=== PATIENT | male | born 1965 | race Caucasian/White ===

== ENCOUNTER 2020-03-09 08:20 | Emergency (ER) | payer SELFPAY ==
[~2020-03-09] VITALS: Ht 175.3 cm; Wt 72.6 kg
--- NOTE | 2020-03-09 08:20 | NUR ---
BIBA TAKEN TO BED 6
[2020-03-09 08:28] VITALS: BP 131/78
--- NOTE | 2020-03-09 08:33 | NUR ---
BIBA AFTER BEING FOUND DIGGING THROUGH TRASH CAN BY [place] [employer]. PT IS POOR HISTORIAN. ANSWERING WITH 1-2 WORDS AND MUMBLED SPEECH. PT DENIES PAIN OR MEDICAL COMPLAINT. FSBS 113. UNABLE TO OBTAIN MEDICAL/ALLERGY HX. BED IN LOW POSITION, SIDE RAIL UP X1.
--- NOTE | 2020-03-09 09:00 | NUR ---
LAB AT BEDSIDE
[2020-03-09 09:12] LABS: BASOPHILS # (AUTO) 0.1 K/uL (0.00-0.22); EOSINOPHILS % (AUTO) 0.8 % (0.0-4.0); HEMOGLOBIN 14.1 g/dL (12.0-18.0); LYMPHOCYTES # (AUTO) 0.9 K/uL (2.0-11.5); LYMPHOCYTES % (AUTO) 13.7 % (20.5-51.1); MEAN CORPUSCULAR HEMOGLOBIN 31 pg (27-31); MEAN CORPUSCULAR HGB CONC 34 g/dL (33-37); MEAN CORPUSCULAR VOLUME 91.7 fL (80-94); MONOCYTES # (AUTO) 0.7 K/uL (0.8-1.0); MONOCYTES % (AUTO) 10.2 % (1.7-9.3); NEUTROPHILS # (AUTO) 4.8 K/uL (1.8-7.7); NEUTROPHILS % (AUTO) 74.3 % (42.2-75.2); PLATELET COUNT (AUTO) 197 K/uL (140-450); RED BLOOD CELL COUNT(AUTO) 4.58 MIL/uL (4.20-6.10); RED CELL DISTRIBUTION WIDTH 13.1 % (11.6-13.7); WHITE BLOOD COUNT (AUTO) 6.4 K/uL (4.8-10.8)
[2020-03-09 09:30] LABS: ALBUMIN 4.2 g/dL (3.4-5.0); ANION GAP 14.3 (8-16); ASPARTATE AMINOTRANSFERASE 82 U/L (15-37); CARBON DIOXIDE 27.1 mmol/L (21-32); CHLORIDE 108 mmol/L (98-107); GFR ARICAN-AMERICAN 101 mL/min (>90); GLUCOSE 93 mg/dL (74-106); POTASSIUM 3.4 mmol/L (3.5-5.1); SODIUM SERUM 146 mmol/L (136-145); TOTAL BILIRUBIN 1.2 mg/dL (0.0-1.0); UREA NITROGEN, BLOOD 23 mg/dL (7-18)
[2020-03-09 09:32] LABS: ACETAMINOPHEN < 0.5 ug/ml (10-30); SALICYLATE < 2.8 mg/dL (2.8-20.0)
--- NOTE | 2020-03-09 10:03 | NUR ---
PT STILL UNABLE TO URINATE, DR. PINON AWARE
[2020-03-09 10:05] VITALS: BP 131/78
--- NOTE | 2020-03-09 10:05 | NUR ---
Patient discharged with v/s stable. Written and verbal after care instructions given and explained. Patient verbalized understanding. Ambulatory with steady gait. All questions addressed prior to discharge. Advised to follow up with PMD. PROVIDED PT WITH PANTS, LUNCH AND HOMELESS RESOURCE PACKET
== END 2020-03-09 10:05 | disposition home or self-care (01) ==
LOC: MED 08:20
DX: R41.82 Altered mental status, unspecified (principal); Z02.89 Encounter for other administrative examinations
CPT/HCPCS: 36415; 80053; 85025; 99283; G0480; G0482

== ENCOUNTER 2020-03-09 15:04 | Emergency (ER) | payer SELFPAY ==
[~2020-03-09] VITALS: Ht 175.3 cm; Wt 72.6 kg
[2020-03-09 15:05] VITALS: BP 137/80
[2020-03-09 16:07] VITALS: BP 137/80
== END 2020-03-09 16:08 | disposition home or self-care (01) ==
LOC: MED 15:04
DX: R41.82 Altered mental status, unspecified (principal); Z02.89 Encounter for other administrative examinations
CPT/HCPCS: 99281; 99283

== ENCOUNTER 2020-03-10 09:38 | Emergency (ER) | payer SELFPAY ==
[~2020-03-10] VITALS: Ht 180.3 cm; Wt 81.6 kg
[2020-03-10 09:47] VITALS: BP 123/89
--- NOTE | 2020-03-10 16:43 | NUR ---
PT TAKEN TO CHAIR A.
--- NOTE | 2020-03-10 17:00 | NUR ---
54/M brought into chair A from JESSIE mccarthy. Pt states "I'm fine I'm fine." Pt is asking for food. Pt is very restless, smacking his lips and mumbling to himself.
[2020-03-10 17:07] VITALS: BP 120/85
--- NOTE | 2020-03-10 17:07 | NUR ---
Patient discharged with v/s stable. Written and verbal after care instructions given and explained. Patient verbalized understanding. Ambulatory with steady gait. All questions addressed prior to discharge. Patient provided with meal to go.
== END 2020-03-10 17:07 | disposition home or self-care (01) ==
LOC: MED 09:38
DX: Z02.89 Encounter for other administrative examinations (principal); Z59.0 Homelessness
CPT/HCPCS: 99283

== ENCOUNTER 2020-03-10 21:13 | Emergency (ER) | payer SELFPAY ==
[~2020-03-10] VITALS: Ht 175.3 cm; Wt 77.1 kg
[2020-03-10 21:13] VITALS: BP 120/80
[2020-03-10] MEDS ORDERED: NACL 0.9% 1,000 ML IV ONE (22:20)
[2020-03-10 23:11] LABS: BASOPHILS # (AUTO) 0.1 K/uL (0.00-0.22); BASOPHILS % (AUTO) 1.2 % (0.0-2.0); EOSINOPHILS # (AUTO) 0.2 K/uL (0-0.4); EOSINOPHILS % (AUTO) 4.2 % (0.0-4.0); HEMATOCRIT 44.1 % (36-52); HEMOGLOBIN 14.8 g/dL (12.0-18.0); LYMPHOCYTES # (AUTO) 1.4 K/uL (2.0-11.5); MEAN CORPUSCULAR HEMOGLOBIN 30 pg (27-31); MEAN CORPUSCULAR HGB CONC 34 g/dL (33-37); MEAN CORPUSCULAR VOLUME 90.5 fL (80-94); MONOCYTES # (AUTO) 0.4 K/uL (0.8-1.0); NEUTROPHILS # (AUTO) 3.6 K/uL (1.8-7.7); NEUTROPHILS % (AUTO) 62.6 % (42.2-75.2); PLATELET COUNT (AUTO) 215 K/uL (140-450); RED BLOOD CELL COUNT(AUTO) 4.87 MIL/uL (4.20-6.10); RED CELL DISTRIBUTION WIDTH 13.5 % (11.6-13.7); WHITE BLOOD COUNT (AUTO) 5.7 K/uL (4.8-10.8)
[2020-03-10 23:40] LABS: ALBUMIN 3.8 g/dL (3.4-5.0); ANION GAP 13.4 (8-16); CREATININE 0.9 mg/dL (0.6-1.3); POTASSIUM 3.4 mmol/L (3.5-5.1); TOTAL BILIRUBIN 0.7 mg/dL (0.0-1.0)
--- NOTE | 2020-03-11 | NUR ---
BIBA C/O GENERALIZED WEAKNESS X TODAY. VSS. DENIES HEADACHE/ BLURRY VISION. DENIES SOB/COUGH. DENIES N/V/D. DENIES ANY DRUG ALLERGIES. PMH: UNOBTAINABLE.
--- NOTE | 2020-03-11 02:03 | NUR ---
Patient discharged with v/s stable. Written and verbal after care instructions given and explained. Patient verbalized understanding. Ambulatory with steady gait. All questions addressed prior to discharge. Advised to follow up with PMD. PT SENT HOME WITH HOMELESS PACKET.
== END 2020-03-11 02:03 | disposition home or self-care (01) ==
LOC: MED 21:13
DX: R53.1 Weakness (principal); Z59.0 Homelessness
CPT/HCPCS: 36415; 80053; 84484; 85025; 93005; 96360; 99284; J7030